=== PATIENT | female | born 1965 | race Caucasian/White ===

== ENCOUNTER → 2017-06-21 | Outpatient (CLI) | payer OTHER ==
--- NOTE | 2017-06-22 11:18 | CNG ---
[address] [address] CYTO-NONGYN REPORT PROCEDURE Name: RENAEPAIGEAbhinavNICO Rafi Room: [facility]#: [id number] Admission: 06/21/17 Date of : 65 Discharge: Report #: [id number] Path Case #: [id number] CYTOPATHOLOGY REPORT COLLECTION DATE: 06/21/2017 RECEIVED DATE: 06/21/2017 SUBMITTING PHYS: Dr. 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 Five passes performed by Dr. Chaevs yielding bloody fluid. Four fixed slides, four air-dried slides, and 30 mL from needle rinsed in CytoLyt were submitted to the lab. SPECIMEN(S) RECEIVED: A.US guided Fine needle aspiration, Left thyroid nodule * * * * * * * * * * * * FINAL DIAGNOSIS: Ultrasound-guided fine needle aspiration, left thyroid nodule: - [place] category: Follicular lesion of undetermined significance. - Thyroid follicular cells with both micro and macrofollicular architecture admixed with few macrophages and scant colloid. (see comment) COMMENT: The fine needle aspiration consists of predominantly a macrofollicular architecture with few microfollicles, however there is scant colloid and few macrophages. The differential includes a solid adenomatoid nodule in multinodular hyperplasia, however the material aspirated may not be personal banking representative and due to the scant amount of colloid, a follicular neoplasm cannot be entirely excluded. Diagnostic features of papillary carcinoma are not seen. Suggest clinical and radiological correlation and follow-up as clinically indicated. (SHA:mgr; 06/22/2017) PATHOLOGIST: Michael Arceo M.D. REPORT ELECTRONICALLY SIGNED BY: Michael Arceo M.D. DATE/TIME: 06/22/2017 11:18 * * * * * * * * * * * * GROSS PATHOLOGY: A. US guided Fine needle aspiration, Left thyroid nodule: The specimen is labeled "Nico Chaves" and consists of four fixed slides, four air dried slides. Thirty mL of cloudy leary fluid in fixative from the needle rinse is also submitted [place] [address] CYTO-NONGYN REPORT PROCEDURE Name: NICO CHAVES Room: [facility]#: [id number] Admission: 06/21/17 Date of : 65 Discharge: Report #: [id number] Path Case #: [id number] slide and a alcohol fixed cell block were prepared from this material. Also received is the RNARetain vial which will be held for molecular studies if needed. (clt 06.21.2017) PRODUCER ASSISTANT(S): CRISTI Jaimse(ASCP) INITIAL CPT CODE(S): A; 79041, 93897 Professional services performed by [facility] at [facility], [address] [place], [place] [address] [address]. Technical services performed by [facility] at [address] [place] [address]., [address], [place] [address]. [address], [address] [place] [address] PHONE: [phone] DIRECTOR: Raimundo Salazar M.D. * * * END OF REPORT * * *
== END | disposition home or self-care (01) ==
LOC: M.ULTRA 07:59
DX: E04.1 Nontoxic single thyroid nodule (principal)